=== PATIENT | male | born 1995 | race Caucasian/White ===

== ENCOUNTER 2017-04-11 00:17 | Emergency (ER) | payer SELFPAY ==
[2017-04-11 00:31] VITALS: RESP 16; O2SAT 95
[2017-04-11] MEDS ORDERED: CLOTRIMAZOLE 1% 15 GM CRTUBE TP ONE (00:33)
--- NOTE | 2017-04-11 00:38 | EDPHY ---
H & P Stated Complaint: bilat foot pain after walking macerated HPI/ROS: Chief complaint: Pain in feet History of present illness: This is a 22-year-old male brought to the emergency department by EMS for evaluation of pain in his feet. He states he has had pain for the last 2 days. He began after he had walked around in the cold, poorly fitting boots and hold on clean socks that were very wet. His feet have become very wet and cold. He denies other associated signs or symptoms including no history of trauma, no paresthesias or paralysis in the feet. No other parts of the body affected. - Personal History Current Tetanus/Diphtheria Vaccine: Yes Current Tetanus Diphtheria and Acellular Pertussis (TDAP): Yes - Medical/Surgical History Hx Asthma: No Hx Chronic Respiratory Disease: No Hx Diabetes: No Hx Cardiac Disease: No Hx Renal Disease: No Hx Cirrhosis: No Hx Alcoholism: No Hx HIV/AIDS: No Hx Splenectomy or Spleen Trauma: No Other PMH: none - Social History Smoking Status: Current some day smoker - Physical Exam Exam: General: Alert, nontoxic Skin: Both feet are macerated. No open wounds or signs of secondary infections. The ankles in the rest the lower extremities are unremarkable. Musculoskeletal: Patient can move all digits in both feet without difficulty. He can move the ankles in both legs without difficulty. He is ambulating well. Vascular: DP and PT pulses 2+. Capillary refill brisk in all digits of the feet. Neurologic: Sensation intact throughout the feet. Constitutional: Initial Vital Signs Temperature (C) 36.8 C 04/11/17 00:28 Heart Rate 90 04/11/17 00:28 Respiratory Rate 16 04/11/17 00:28 Blood Pressure 135/69 H 04/11/17 00:28 O2 Sat (%) 95 04/11/17 00:28 O2 Delivery Mode Room Air Allergies/Adverse Reactions: haloperidol [From Haldol] Allergy (Verified 04/11/17 00:28) Penicillins Allergy (Verified 04/11/17 00:28) Home Medications: Medication Instructions Recorded NK [No Known Home Meds] 04/11/17 Medical Decision Making ED Course/Re-evaluation: Patient seen under the supervision of my secondary supervising physician Dr. Brennan Coker. Patient presents to the emergency depart with bilateral foot pain. The feet are very macerated and very dirty. However they remain neurovascularly intact. He has good musculoskeletal control. We have cleaned his feet for him. We have provided him with multiple pairs of new dry socks. Home care is discussed including good hygiene. He is discharged. Return precautions are given. Patient voiced understanding and agreement with plan. Differential Diagnosis: Included but not limited to trench foot, frostbite, cellulitis, blister formation - Data Points Medications Given: Discontinued Medications Clotrimazole (Lotrimin 1%) 1 rabia TP EDNOW ONE Stop: 04/11/17 00:34 Last Admin: 04/11/17 02:50 Dose: 1 btl Departure - Departure Disposition: Home, Routine, Self-Care Clinical Impression: Skin maceration Condition: Good Instructions: Athlete's Foot (ED) Additional Instructions: Follow-up with a primary care doctor for recheck Keep your feet clean, warm and dry. Change socks twice daily. Use ibuprofen 600 mg 3 times a day for the next 2-3 days for symptom control If symptoms worsen or new symptoms develop return to the emergency room for recheck Referrals: Patient,NotPresent [Unknown] - As per Instructions [facility],. [Clinic] - As per Instructions
[2017-04-11 02:54] VITALS: BP 101/42; PULSE 80; TEMP 98.4
== END 2017-04-11 03:19 | disposition home or self-care (01) ==
DX: R23.8 Other skin changes (principal); F17.200 Nicotine dependence, unspecified, uncomplicated